=== PATIENT | male | born 1955 | race Caucasian/White ===

== ENCOUNTER 2024-08-29 10:50 | Outpatient (CLI) | payer MEDICARE | END 2024-08-29 10:51 | disposition home or self-care (01) | LOC: BICCT 10:50 | PROVIDERS: ATTEND Internal Medicine Hematology & Oncology | DX: Z12.2 Encounter for screening for malignant neoplasm of respiratory organs (principal); F17.210 Nicotine dependence, cigarettes, uncomplicated | CPT/HCPCS: 71271 ==